=== PATIENT | female | born 1965 | race Caucasian/White ===

== ENCOUNTER 2018-05-01 16:00 | Outpatient (CLI) | payer OTHER | END 2018-05-01 16:30 | LOC: D.MAMMO 16:00 | DX: Z12.31 Encounter for screening mammogram for malignant neoplasm of breast (principal) ==

== ENCOUNTER → 2018-06-26 19:00 | Outpatient (CLI) | payer OTHER | END | disposition home or self-care (01) | LOC: D.MAMMO 09:30 | DX: R92.8 Other abnormal and inconclusive findings on diagnostic imaging of breast (principal) ==

== ENCOUNTER → 2018-07-27 16:29 | Outpatient (CLI) | payer OTHER | END | disposition home or self-care (01) | LOC: D.MAMMO 08:00 | DX: R92.0 Mammographic microcalcification found on diagnostic imaging of breast (principal) ==